=== PATIENT | female | born 1940 | race Caucasian/White ===

== ENCOUNTER 2018-08-12 13:18 | Emergency (ER) | payer OTHER ==
[~2018-08-12] VITALS: Ht 160 cm; Wt 68.0 kg
[2018-08-12 16:23] VITALS: BP 169/78
[2018-08-12] MEDS ORDERED: BACITRACIN TOP OINT 1 UD PKG TOP ONE (18:15)
== END 2018-08-12 18:12 | disposition home or self-care (01) ==
LOC: ER 13:18
DX: S01.412A Laceration without foreign body of left cheek and temporomandibular area, initial encounter (principal); Z88.0 Allergy status to penicillin; W55.03XA Scratched by cat, initial encounter; Y93.39 Activity, other involving climbing, rappelling and jumping off; Y92.89 Other specified places as the place of occurrence of the external cause; Y99.8 Other external cause status
CPT/HCPCS: 12013